=== PATIENT | female | born 2000 | race Caucasian/White ===

== ENCOUNTER 2024-07-31 22:49 | Emergency (ER) | payer BC ==
[2024-08-01] MEDS: Acetaminophen 500 MG Tab PO ONE (00:27)
[2024-08-01] MEDS: Orphenadrine 60 MG/2 ML Inj IM PRN (00:28)
== END 2024-08-01 00:35 | disposition home or self-care (01) ==
LOC: MW.ED 22:49
DX: M79.662 Pain in left lower leg (principal); R03.0 Elevated blood-pressure reading, without diagnosis of hypertension; Z91.048 Other nonmedicinal substance allergy status; Z88.7 Allergy status to serum and vaccine; Z79.01 Long term (current) use of anticoagulants; Z79.899 Other long term (current) drug therapy; Z86.718 Personal history of other venous thrombosis and embolism
CPT/HCPCS: 81025; 93971; 96372; 99284; A9270; J2360